=== PATIENT | male | born 1960 | race Caucasian/White ===

== ENCOUNTER 2017-07-07 15:06 | Emergency (ER) | payer SELFPAY ==
[2017-07-07 15:20] VITALS: BP 172/89
--- NOTE | 2017-07-07 15:45 | XRay Report ---
Left hand 3 views: History: Swelling and pain. Findings: There is severe arthritic changes noted the interphalangeal joint fifth finger with moderate arthritic changes at the interphalangeal joint second, third and fourth fingers. Mild arthritic changes also noted at the first carpometacarpal joint and the first interphalangeal joint. No fracture. No periosteal reaction or lytic lesion. Impression: Arthritic changes as detailed above.
[2017-07-07] MEDS ORDERED: MOTRIN PO ONE (18:13)
[2017-07-07] MEDS ORDERED: BOOSTRIX IM ONE (18:13)
--- NOTE | 2017-07-07 18:22 | Emergency Department Report ---
ED Upper Extremity Inj HPI - General Chief Complaint: Extremity Injury, Upper Stated Complaint: 2 FINGERS INJURED/LEFT HAND Time Seen by Provider: 07/07/17 18:00 Source: patient Mode of arrival: Ambulatory Limitations: Language Barrier - History of Present Illness Initial Comments: This is a 57-year-old male nontoxic, well nourished in appearance, no acute signs of distress presents to the ED with c/o of left middle and 4th finger pain and ecchymosis 1. Patient stated that she was at work and had a crush injury. Patient stated that he was a clinic that was referred to the ED stating that he needs a surgery most likely. Patient stated that he has decreased sensation in his left middle finger. Patient denies any fever, chills , nausea, vomiting, headache, stiff neck, chest pain and short of breath. Patient denies any allergies. PMH includes diabetes. Patient is Persian- speaking only and transferred alcohol present during interview, procedure and discharge. Patient denies up-to-date with tetanus. MD Complaint: Injury to:: left, finger Other Extremity Injury: Fingers: Left Other Injuries: none Place: home Severity scale (0 -10): 8 Improves With: immobilization Worsens With: movement of extremity Associated Symptoms: denies other symptoms, numbness. denies: weakness, neck pain, suspects foreign body, nausea/vomiting, heard/felt popping sensat - Related Data Previous Rx's Medication Instructions Recorded Last Taken Type Acetaminophen/Codeine [Tylenol 1 tab PO Q6H PRN #14 tab 07/07/17 Unknown Rx /Codeine # 3 tab] Ibuprofen [Motrin] 600 mg PO Q8H PRN #30 tablet 07/07/17 Unknown Rx Sulfamethoxazole/Trimethoprim 1 each PO BID #14 tablet 07/07/17 Unknown Rx [Bactrim DS TAB] Allergies Allergy/AdvReac Type Severity Reaction Status Date / Time No Known Allergies Allergy Unverified 07/07/17 15:20 ED Review of Systems ROS: Stated complaint: 2 FINGERS INJURED/LEFT HAND Other details as noted in HPI Constitutional: denies: chills, fever Eyes: denies: eye pain, eye discharge, vision change ENT: denies: ear pain, throat pain Respiratory: denies: cough, shortness of breath, wheezing Cardiovascular: denies: chest pain, palpitations Endocrine: no symptoms reported Gastrointestinal: denies: abdominal pain, nausea, diarrhea Genitourinary: denies: urgency, dysuria Musculoskeletal: denies: back pain, joint swelling, arthralgia Skin: denies: rash, lesions Neurological: denies: headache, weakness, paresthesias Psychiatric: denies: anxiety, depression Hematological/Lymphatic: denies: easy bleeding, easy bruising ED Past Medical Hx - Past Medical History Previous Medical History?: No - Surgical History Past Surgical History?: No - Social History Smoking Status: Never Smoker - Medications Home Medications: Home Medications Medication Instructions Recorded Confirmed Last Taken Type Acetaminophen/Codeine [Tylenol 1 tab PO Q6H PRN #14 tab 07/07/17 Unknown Rx /Codeine # 3 tab] Ibuprofen [Motrin] 600 mg PO Q8H PRN #30 tablet 07/07/17 Unknown Rx Sulfamethoxazole/Trimethoprim 1 each PO BID #14 tablet 07/07/17 Unknown Rx [Bactrim DS TAB] ED Physical Exam - General Limitations: Language Barrier General appearance: alert, in no apparent distress - Head Head exam: Present: atraumatic, normocephalic - Eye Eye exam: Present: normal appearance - ENT ENT exam: Present: normal exam, mucous membranes moist - Neck Neck exam: Present: normal inspection, full ROM - Respiratory Respiratory exam: Present: normal lung sounds bilaterally. Absent: respiratory distress - Cardiovascular Cardiovascular Exam: Present: regular rate, normal rhythm. Absent: systolic murmur, diastolic murmur, rubs, gallop - GI/Abdominal GI/Abdominal exam: Present: soft, normal bowel sounds - Rectal Rectal exam: Present: deferred - Extremities Exam Extremities exam: Present: normal inspection, full ROM, tenderness, normal capillary refill. Absent: joint swelling - Expanded Upper Extremity Exam Left General: Present: normal inspection Shoulder Exam: Present: normal inspection, full ROM Upper Arm exam: Present: normal inspection, full ROM Elbow exam: Present: normal inspection, full ROM Forearm Wrist exam: Present: normal inspection, full ROM Hand Wrist exam: Present: normal inspection, full ROM, tenderness, swelling, ecchymosis, subungual hematoma. Absent: abrasion, laceration, deformity, crepidus, dislocation, erythema, amputation, nail avulsion Hand L/R Front: 1 - Positive: other (hemaatoma) Hand L/R Back: 1 - hematoma Neuro motor exam: Present: wrist extension intact, thumb opposition intact, thumb IP flexion intact, thumb adduction intact, fingers 2-5 abduction intact Neurosensory exam: Present: 2-point discrimination, radial nerve intact, ulnar nerve intact, median nerve intact Vascular: Present: vascular compromise, normal capillary refill, radial pulse, brachial pulse, ulnar pulse - Back Exam Back exam: Present: normal inspection, full ROM. Absent: tenderness, CVA tenderness (R) - Neurological Exam Neurological exam: Present: alert, oriented X3, normal gait - Psychiatric Psychiatric exam: Present: normal affect, normal mood - Skin Skin exam: Present: warm, dry, intact, normal color. Absent: rash ED Course Vital Signs 07/07/17 15:14 Temperature 97.9 F Pulse Rate 78 Respiratory 18 Rate Blood Pressure 172/89 O2 Sat by Pulse 99 Oximetry - Reevaluation(s) Reevaluation #1: 07/07/17 18:21 Patient is speaking in full sentences with no signs of distress noted. - Consultations Consultation #1: 07/07/17 18:21 Patient has been consulted with Dr. Dixon about patient history, physical exam and examined and screened patient and agrees to ED plan of care and discharge plan of care. - Procedure Description Procedures done: Under sterile field, I used Betadine to clean the area. I then used 40 mL of normal saline to flush the area. I then used 1% lidocaine plain and injected 3 mL to proximal digital block of left 4th finger. I then used cautery to the nail bed. I also used an 15 blade to make a 05. cm incision to the left distal middle finger anterior for the hematoma. I then applied a sterile 4 x 4 with tape. Minimal bleeding noted but is under control. Patient tolerated procedure well with no signs of distress. ED Medical Decision Making - Medical Decision Making This is a 57-year-old male that presents with subungual hematoma. Patient is stable was examined by me and Dr. Dixon. Procedure done successfully and patient tolerated well. Patient is discharged with Bactrim and Tylenol 3 instructed to not operate any machinery while taking Tylenol No. 3 due to drowsiness. Patient did receive a sober finger splint to the left middle finger. Patient was instructed to refer to Follow-up with a orthopedic/hand doctor in 24 hours or if symptoms worsen and continue return to emergency room as soon as possible. At time of discharge, the patient does not seem toxic or ill in appearance. No acute signs of distress noted. Patient agrees to discharge treatment plan of care. No further questions noted by the patient. [employer] assistant manager trainee present during interview, physical exam and procedure and discharged. Critical care attestation.: If time is entered above; I have spent that time in minutes in the direct care of this critically ill patient, excluding procedure time. ED Disposition Clinical Impression: Subungual hematoma Disposition: DC-01 TO HOME OR SELFCARE Is pt being admited?: No Does the pt Need Aspirin: No Condition: Stable Instructions: Acetaminophen/Codeine (By mouth), Subungual Hematoma (ED) Additional Instructions: Follow-up with a orthopedic/hand care doctor in 24 hours or if symptoms worsen and continue return to emergency room as soon as possible. Prescriptions: Acetaminophen/Codeine [Tylenol /Codeine # 3 tab] 1 tab PO Q6H PRN #14 tab PRN Reason: Pain Ibuprofen [Motrin] 600 mg PO Q8H PRN #30 tablet PRN Reason: Pain Sulfamethoxazole/Trimethoprim [Bactrim DS TAB] 1 each PO BID #14 tablet Referrals: PRIMARY MD EMILY [Primary Care Provider] - 3-5 Days ORLANDO MCCRARY MD [Staff Physician] - 3-5 Days [facility] [Outside] - 3-5 Days [facility] [Outside] - 3-5 Days Forms: Work/School Release Form(ED)
== END 2017-07-07 19:05 | disposition home or self-care (01) ==
LOC: ED 15:06
DX: S60.032A Contusion of left middle finger without damage to nail, initial encounter (principal); X58.XXXA Exposure to other specified factors, initial encounter; Y93.89 Activity, other specified; Y92.89 Other specified places as the place of occurrence of the external cause; Y99.8 Other external cause status
CPT/HCPCS: 90471; 90715; 99283